=== PATIENT | female | born 1975 | race Caucasian/White ===

== ENCOUNTER 2017-06-02 11:43 | Emergency (ER) | payer BC, SELFPAY ==
[2017-06-02 11:56] VITALS: BP 137/81; PULSE 79; RESP 20; O2SAT 98; BMI 40.8
--- NOTE | 2017-06-02 12:06 | HMH.EDUTC ---
[facility] [place] Clinical Impression: Influenza A Disposition: Home, Self-Care Condition on Discharge: Good Instructions: DI for Influenza -- Adult Additional Instructions: * Too late to start tamiflu. Most effective when started within 48 hours of symptoms onset. * Lots of rest * Increase fluids, water, gatorade, powerade, pedialyte if /toddler/child * Monitor Temp. Tylenol every 4 hours as needed no more then 5 times a day or 4000mg in 24 hours and/or ibuprofen every 6 hours as needed no more then 3200mg in 24 hours (as long as your primary care doctor has told you that it is ok to take both) for fever/aches/pain. ER if fever no less than 101 despite tylenol and Ibuprofen * OTC cold/flu/sinus medication is ok but pick one. Do not take multiple different ones as they have similar ingredients and you can overdose on cold medication. If you want to take plain mucinex and plain sudafed, that is ok. * flonase 2 sprays each nostril daily but may take 2-3 days to notice improvement with it. * You (or your child) are contagious until no fever, aches, chills x 24 hours without medication for symptoms. Prescriptions: Fluticasone Propionate [Flonase 50mcg nasal spray 16gm] 2 spr NS DAILY #1 bottle Referrals: Bart Wagner MD [Primary Care Provider] - (IMMEDIATELY for new or worsening symptoms, improvement followed by suddenly feeling worse OR no noticeable improvement over the next 48-72 hours. 911 for difficulty breathing ) Time of Disposition: 12:22 Medical Decision Making Vital Signs: 06/02/17 11:56 06/02/17 12:10 Temperature 97.5 F L Temperature Source Temporal Artery Scan Oral Pulse Rate [Brachial] 79 Respiratory Rate 20 Blood Pressure [Left Arm] 137/81 Blood Pressure Mean [Left Arm] 99 Blood Pressure Source [Left Arm] Automatic Cuff Blood Pressure Position [Left Arm] Sitting 02 Sat by Pulse Oximetry 98 Oxygen Delivery Method Room Air - Lab Data Lab results reviewed: Yes: I reviewed the patient's lab results. Flu A positive Flu B negative - Nasim Inquiry Pt receiving controlled substance: No [facility] [place] - General Stated complaint: Head congestion cough DYER Time Seen by Provider: 06/02/17 11:57 Mode of Arrival: Ambulatory Source of Information: Patient Limitations: No Limitations Description of Symptoms (Recalled from Triage Doc. by RN): COUGH AND CONGESTION SINCE WEDNESDAY WITH FEVER OFF AND ON HEENT Symptoms (Recalled from RN notes): Yes Resp Symptoms (Recalled from RN notes): Yes Skin Symptoms (Recalled from RN notes): No MS Symptoms (Recalled from RN notes): No Functional Status (Recalled from RN notes): NA - History of Present Illness Provider Complaint: c/o not feeling well since Wednesday, 3 days ago. Started w/ mild sinus pressure but reports each day, she has felt worse. Mucinex hasn't helped. Ibuprofen takes the edge off . Fever 99-100, aches, chills, rhinorrhea, nasal congestion, sinus pressure, cough. Daughter w/ same symptoms last week. neg for flu on day 1 but thought to be flu like illness. - Related Data Previous Rx's Medication Instructions Recorded Fluticasone Propionate [Flonase 2 spr NS DAILY #1 bottle 06/02/17 50mcg nasal spray 16gm] Allergies Allergy/AdvReac Type Severity Reaction Status Date / Time No Known Allergies Allergy Verified 06/02/17 11:51 - Worker's Comp Is this a Worker's Comp case?: No [facility] History I have reviewed the patient's past medical history: Yes (denies PMHx) Laterality Cases: Bilateral: Tonsillectomy Other Surgeries: Yes: Tubal Ligation, Other (hysterectomy) - *Social History Smoking Status: Never smoker Alcohol Intake: never - Psychiatric History Expresses thoughts of harming self/others: None Suicide Plan Description: No Plan ROS Obtained: Yes Systems reviewed as appropriate & no additional complaints - Constitutional Constitutional: Reports body ache, Reports chills, Reports fatigue, Reports fever(s), Reports poor a
--- NOTE | 2017-06-02 12:09 | ED_ITS ---
[facility] – [place] Disposition Clinical Impression: Influenza A Disposition: Home, Self-Care Condition on Discharge: Good Instructions: DI for Influenza -- Adult Additional Instructions: * Too late to start tamiflu. Most effective when started within 48 hours of symptoms onset. * Lots of rest * Increase fluids, water, gatorade, powerade, pedialyte if /toddler/child * Monitor Temp. Tylenol every 4 hours as needed no more then 5 times a day or 4000mg in 24 hours and/or ibuprofen every 6 hours as needed no more then 3200mg in 24 hours (as long as your primary care doctor has told you that it is ok to take both) for fever/aches/pain. ER if fever no less than 101 despite tylenol and Ibuprofen * OTC cold/flu/sinus medication is ok but pick one. Do not take multiple different ones as they have similar ingredients and you can overdose on cold medication. If you want to take plain mucinex and plain sudafed, that is ok. * flonase 2 sprays each nostril daily but may take 2-3 days to notice improvement with it. * You (or your child) are contagious until no fever, aches, chills x 24 hours without medication for symptoms. Prescriptions: Fluticasone Propionate [Flonase 50mcg nasal spray 16gm] 2 spr NS DAILY #1 bottle Referrals: Bart Wagner MD [Primary Care Provider] - (IMMEDIATELY for new or worsening symptoms, improvement followed by suddenly feeling worse OR no noticeable improvement over the next 48-72 hours. 911 for difficulty breathing ) Time of Disposition: 12:22 Medical Decision Making Vital Signs: 06/02/17 11:56 06/02/17 12:10 Temperature 97.5 F L Temperature Source Temporal Artery Scan Oral Pulse Rate [Brachial] 79 Respiratory Rate 20 Blood Pressure [Left Arm] 137/81 Blood Pressure Mean [Left Arm] 99 Blood Pressure Source [Left Arm] Automatic Cuff Blood Pressure Position [Left Arm] Sitting 02 Sat by Pulse Oximetry 98 Oxygen Delivery Method Room Air - Lab Data Lab results reviewed: Yes: I reviewed the patient's lab results. Flu A positive Flu B negative - Nasim Inquiry Pt receiving controlled substance: No [facility] [place] HPI - General Stated complaint: Head congestion cough DYER Time Seen by Provider: 06/02/17 11:57 Mode of Arrival: Ambulatory Source of Information: Patient Limitations: No Limitations Description of Symptoms (Recalled from Triage Doc. by RN): COUGH AND CONGESTION SINCE WEDNESDAY WITH FEVER OFF AND ON HEENT Symptoms (Recalled from RN notes): Yes Resp Symptoms (Recalled from RN notes): Yes Skin Symptoms (Recalled from RN notes): No MS Symptoms (Recalled from RN notes): No Functional Status (Recalled from RN notes): NA - History of Present Illness Provider Complaint: c/o not feeling well since Wednesday, 3 days ago. Started w/ mild sinus pressure but reports each day, she has felt worse. Mucinex hasn't helped. Ibuprofen takes the edge off . Fever 99-100, aches, chills, rhinorrhea , nasal congestion, sinus pressure, cough. Daughter w/ same symptoms last week. neg for flu on day 1 but thought to be flu like illness. - Related Data Previous Rx's Medication Instructions Recorded Fluticasone Propionate [Flonase 2 spr NS DAILY #1 bottle 06/02/17 50mcg nasal spray 16gm] Allergies Allergy/AdvReac Type Severity Reaction Status Date / Time No Known Allergies Allergy Verified 06/02/17 11:51 - Worker's Comp Is this a Worker's Comp case?: No [facility] History
[2017-06-02 12:10] VITALS: TEMP 36.4
[2017-06-02 12:24] LABS: UTC Influenza A Antigen Positive (Negative); UTC Influenza B Antigen Negative (Negative)
== END 2017-06-02 12:29 | disposition home or self-care (01) ==
PROVIDERS: Emergency Provider Nurse Practitioner Family; Family Provider Internal Medicine Adolescent Medicine; PCP Internal Medicine Adolescent Medicine
DX: J09.X2 Influenza due to identified novel influenza A virus with other respiratory manifestations (principal)
CPT/HCPCS: 87804; 99202

== ENCOUNTER 2017-07-12 09:31 | Emergency (ER) | payer BC, SELFPAY ==
[2017-07-12 09:54] VITALS: BP 106/82; PULSE 62; RESP 18; TEMP 36.8; O2SAT 97; BMI 41.9
[2017-07-12 10:09] LABS: UTC Influenza A Antigen Negative (Negative); UTC Influenza B Antigen Negative (Negative); UTC Strep Screen (Rapid) Negative (Negative)
--- NOTE | 2017-07-12 11:04 | HMH.EDUTC ---
[facility] – [place] Disposition Clinical Impression: Upper respiratory virus Disposition: Home, Self-Care Condition on Discharge: Good Instructions: DI for Viral Upper Respiratory Infection -- Adult Additional Instructions: * No sign of bacterial infection. Likely viral and possibly the same virus your daughter had. Virus can take 7-14 days to run their course * Monitor Temp. Follow up if fevers develop * Encourage fluids, water, gatorade, powerade, pedialyte if infant/toddler/child * warm salt water gargles * warm fluids * sore throat lozenges * sleep elevated * humidifier/vaporizer * flonase 2 sprays each nostril daily or one spray each nostril twice a day; may take 2-3 days to notice improvement with it. * Start antihistamine like we discussed. If you have miguel angel, that is ok * Start sudafed for congestion. * * Your throat swab was sent for culture. Those results are typically sent to your primary care. Be sure to follow up in 2-3 days if no improvement so they can review those results and treat if necessary. If you don't have primary care, I recommend you get one but in the mean time, you will have to return to a walk in clinic. Referrals: Bart Wagner MD [Primary Care Provider] - (IMMEDIATELY for new or worsening symptoms, improvement followed by suddenly feeling worse OR no noticeable improvement over the next 3-4 days. 911 for difficulty breathing ) Time of Disposition: 11:06 Medical Decision Making Vital Signs: 07/12/17 09:54 Temperature 98.2 F Temperature Source Temporal Artery Scan Pulse Rate [Right Radial] 62 Respiratory Rate 18 Blood Pressure [Right Arm] 106/82 Blood Pressure Mean [Right Arm] 90 02 Sat by Pulse Oximetry 97 Oxygen Delivery Method Room Air - Lab Data Lab results reviewed: Yes: I reviewed the patient's lab results. Lab Results 07/12/17 09:32: Influenza Type A Ag Negative, Influenza Type B Ag Negative, Strep Scn Rapid Clinic Negative Orders (Tests/Meds): ORDERS Category Date Time Status Strep Screen Confirmation Stat Micro 07/12/17 09:32 Received - Nasim Inquiry Pt receiving controlled substance: No [facility] [place] HPI - General Stated complaint: Sinus Infection Time Seen by Provider: 07/12/17 10:55 Mode of Arrival: Family Vehicle Source of Information: Patient Limitations: No Limitations Description of Symptoms (Recalled from Triage Doc. by RN): pt c/o headache, sore throat, congestion, body aches. HEENT Symptoms (Recalled from RN notes): Yes (headache, sore throat, congestion, body aches) Resp Symptoms (Recalled from RN notes): No Skin Symptoms (Recalled from RN notes): No MS Symptoms (Recalled from RN notes): No Functional Status (Recalled from RN notes): na - History of Present Illness Provider Complaint: c/o nasal congestion, scratchy throat, rhinorrhea, ear pressure, PND, fatigue starting yesterday. Daughter w/ flu like illnesses last week after being exposed to flu that resolved over 5-6 days. Flonase started last night with mucinex but no improvement yet. Worried about flu or strep. - Related Data Previous Rx's Medication Instructions Recorded Fluticasone Propionate [Flonase 2 spr NS DAILY #1 bottle 06/02/17 50mcg nasal spray 16gm] Allergies Allergy/AdvReac Type Severity Reaction Status Date / Time No Known Allergies Allergy Verified 06/02/17 11:51 - Worker's Comp Is this a Worker's Comp case?: No [facility] History I have reviewed the patient's past medical history: Yes Medical History: Denies:: Cancer, Diabetes Mellitus Type 1, Diabetes Mellitus Type 2, Hypertension, MRSA Laterality Cases: Bilateral: Tonsillectomy Other Surgeries: Yes: Tubal Ligation, Other (hysterectomy) Amputation: No - Social History Smoking Status: Never smoker Alcohol Intake: never - Psychiatric History Expresses thoughts of harming self/others: None Suicide Plan Description: No Plan ROS Obtained: Yes Systems reviewed as appropriate & no additional complaints - Con
[2017-07-12 11:07] VITALS: BP 136/77; PULSE 87; RESP 20; TEMP 36.6; O2SAT 100
== END 2017-07-12 11:09 | disposition home or self-care (01) ==
PROVIDERS: Emergency Provider Nurse Practitioner Family; Family Provider Internal Medicine Adolescent Medicine; PCP Internal Medicine Adolescent Medicine
DX: J06.9 Acute upper respiratory infection, unspecified (principal)
CPT/HCPCS: 87804; 87880; 99202

== ENCOUNTER 2017-08-03 19:19 | Emergency (ER) | payer BC, SELFPAY ==
[2017-08-03 21:02] VITALS: BP 142/90; PULSE 77; RESP 20; TEMP 36.9; O2SAT 98; BMI 41.8
--- NOTE | 2017-08-03 21:13 | HMH.EDUTC ---
[facility] – [place] Disposition Clinical Impression: Abdominal pain Qualifiers: Abdominal location: lower abdomen, unspecified Qualified Code(s): R10.30 - Lower abdominal pain, unspecified Disposition: Still a Patient Condition on Discharge: Fair Time of Disposition: 21:24 (transfer to ER) Medical Decision Making - Nasim Inquiry Pt receiving controlled substance: No Vital Signs: 08/03/17 21:02 Temperature 98.4 F Temperature Source Oral Pulse Rate [Right Radial] 77 Respiratory Rate 20 Blood Pressure [Right Arm] 142/90 Blood Pressure Mean [Right Arm] 107 02 Sat by Pulse Oximetry 98 Oxygen Delivery Method Room Air - Lab Data Lab results reviewed: Yes: I reviewed the patient's lab results. Lab Results 08/03/17 20:54: Urine Color Yellow, Urine Appearance Clear, Urine pH 5.5, Ur Specific [place] 1.025, Urine Protein Negative, Urine Glucose (UA) Negative, Urine Ketones Negative, Urine Blood Negative, Urine Nitrate Negative, Urine Bilirubin Negative, Urine Urobilinogen 0.2, Ur Leukocyte Esterase Negative - Reevaluation(s) Time: 21:20 Reevaluation #1: Discussed possible differentials and my concern for patient's degree of discomfort. Pt agreeable to transfer to ER for further evaluation. Report called to CC. Bed 11 available. Isabell assisted pt to ER who preferred to walk as opposed to riding in W/C due to increasing pain w/ sitting. [facility] [place] HPI - General Stated complaint: abd pain Time Seen by Provider: 08/03/17 21:13 Mode of Arrival: Family Vehicle Source of Information: Patient, Parent(s) Limitations: No Limitations Description of Symptoms (Recalled from Triage Doc. by RN): PT C/O ABDOMINAL PAIN SINCE LAST NIGHT, PT STATES SHE IS HAVING BOWEL MOVEMENT PROBLEMS. HEENT Symptoms (Recalled from RN notes): No Resp Symptoms (Recalled from RN notes): No Skin Symptoms (Recalled from RN notes): No MS Symptoms (Recalled from RN notes): No Functional Status (Recalled from RN notes): NA - History of Present Illness Provider Complaint: c/o lower abdominal pain. First noticed this morning after a normal BM. [place] like maybe I didn't get it all out . 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 Tried soaking in a bath after that. Another normal but excruciatingly painful BM after the bath. Throughout the day, pain has progressed and now painful to walk, move. Hx of total hysterectomy. No fever, aches, chills. - Related Data Previous Rx's Medication Instructions Recorded Fluticasone Propionate [Flonase 2 spr NS DAILY #1 bottle 06/02/17 50mcg nasal spray 16gm] Allergies Allergy/AdvReac Type Severity Reaction Status Date / Time No Known Allergies Allergy Verified 08/03/17 20:26 - Worker's Comp Is this a Worker's Comp case?: No [facility] History I have reviewed the patient's past medical history: Yes Medical History: Denies:: Cancer, Diabetes Mellitus Type 1, Diabetes Mellitus Type 2, Gastrointestinal Bleed, Hypertension, MRSA Other Medical History: Denies: Other (GI disorders) Laterality Cases: Bilateral: Tonsillectomy Other Surgeries: Yes: Hysterectomy-Total, Tubal Ligation, Other (hysterectomy) Amputation: No Fractures: No - Social History Smoking Status: Never smoker Alcohol Intake: never - Psychiatric History Expresses thoughts of harming self/others: None Suicide Plan Description: No Plan ROS Obtained: Yes Systems reviewed as appropriate & no additional complaints - Constitutional Constitutional: Reports as per HPI, Reports fatigue, Reports poor appetite - ENT Ears, Nose, Mouth, and Throat: Denies sore throat - Cardiovascular Cardiovascular: Denies chest pain, Denies irregular heart rhythm - Respiratory Respiratory: No dyspnea - Gastrointestinal Gastrointestingal: Reports: as per HPI, other (painful passing gas). Denies: nausea, vomiting - Genitourinary Female Genitourinary: Denies difficulty voiding, Denies dysuria, Denies urinary frequency, Denies vaginal
[2017-08-03 21:23] LABS: Apearance,Urine Clear (Clear); Bilirubin,Urine Negative (Negative); Blood, Urine Negative (Negative); Color,Urine Yellow (Yellow); Glucose,Urine (UA) Negative (Negative); Ketones,Urine Negative (Negative); PH,Urine 5.5 (5.0-8.5); Protein,Urine Negative (Negative); Specific Gravity, Urine 1.025 (1.005-1.030); UTC Leukocyte Esterase,Urine Negative (Negative); UTC Nitrate,Urine Negative (Negative); Urobilinogen,Urine 0.2 EU/dl (0.2)
--- NOTE | 2017-08-03 21:24 | ED_ITS ---
[facility] [place] Impression: Abdominal pain Qualifiers: Abdominal location: lower abdomen, unspecified Qualified Code(s): R10.30 - Lower abdominal pain, unspecified Disposition: Still a Patient Condition on Discharge: Fair Time of Disposition: 21:24 (transfer to ER) Medical Decision Making - Nasim Inquiry Pt receiving controlled substance: No Vital Signs: 08/03/17 21:02 Temperature 98.4 F Temperature Source Oral Pulse Rate [Right Radial] 77 Respiratory Rate 20 Blood Pressure [Right Arm] 142/90 Blood Pressure Mean [Right Arm] 107 02 Sat by Pulse Oximetry 98 Oxygen Delivery Method Room Air - Lab Data Lab results reviewed: Yes: I reviewed the patient's lab results. Lab Results 08/03/17 20:54: Urine Color Yellow, Urine Appearance Clear, Urine pH 5.5, Ur Specific [place] 1.025, Urine Protein Negative, Urine Glucose (UA) Negative, Urine Ketones Negative, Urine Blood Negative, Urine Nitrate Negative, Urine Bilirubin Negative, Urine Urobilinogen 0.2, Ur Leukocyte Esterase Negative - Reevaluation(s) Time: 21:20 Reevaluation #1: Discussed possible differentials and my concern for patient's degree of discomfort. Pt agreeable to transfer to ER for further evaluation. Report called to CC. Bed 11 available. Isabell assisted pt to ER who preferred to walk as opposed to riding in W/C due to increasing pain w/ sitting. [facility] [place] - General Stated complaint: abd pain Time Seen by Provider: 08/03/17 21:13 Mode of Arrival: Family Vehicle Source of Information: Patient, Parent(s) Limitations: No Limitations Description of Symptoms (Recalled from Triage Doc. by RN): PT C/O ABDOMINAL PAIN SINCE LAST NIGHT, PT STATES SHE IS HAVING BOWEL MOVEMENT PROBLEMS. HEENT Symptoms (Recalled from RN notes): No Resp Symptoms (Recalled from RN notes): No Skin Symptoms (Recalled from RN notes): No MS Symptoms (Recalled from RN notes): No Functional Status (Recalled from RN notes): NA - History of Present Illness Provider Complaint: c/o lower abdominal pain. First noticed this morning after a normal BM. [place] like maybe I didn't get it all out . 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 Tried soaking in a bath after that. Another normal but excruciatingly painful BM after the bath. Throughout the day, pain has progressed and now painful to walk, move. Hx of total hysterectomy. No fever, aches, chills. - Related Data Previous Rx's Medication Instructions Recorded Fluticasone Propionate [Flonase 2 spr NS DAILY #1 bottle 06/02/17 50mcg nasal spray 16gm] Allergies Allergy/AdvReac Type Severity Reaction Status Date / Time No Known Allergies Allergy Verified 08/03/17 20:26 - Worker's Comp Is this a Worker's Comp case?: No [facility] History I have reviewed the patient's past medical history: Yes Medical History: Denies:: Cancer, Diabetes Mellitus Type 1, Diabetes Mellitus Type 2, Gastrointestinal Bleed, Hypertension, MRSA Other Medical History: Denies: Other (GI disorders) Laterality Cases: Bilateral: Tonsillectomy Other Surgeries: Yes: Hysterectomy-Total, Tubal Ligation, Other (hysterectomy) Amputation: No Fractures: No - Social History Smoking Status: Never smoker Alcohol Intake: never - Psychiatric History Expresses thoughts of harming self/others: None Suicide Plan Description: No Plan ROS Obtained: Yes Systems
[2017-08-03 21:31] VITALS: BP 142/86; PULSE 74; RESP 12; TEMP 36.8; O2SAT 97; BMI 41.8
[2017-08-03 22:16] LABS: Basophils # 0.1 K/mm3 (0-0.2); Basophils % 0.5 % (0.1-2.0); Eosinophils # 0.3 K/mm3 (0.0-0.4); Eosinophils % 3.2 % (0.1-12.0); Hemoglobin 14.8 g/dL (12.2-16.2); Lymphocytes # 3.6 K/mm3 (0.7-4.5); Lymphocytes % 39.1 K/mm3 (10-50); Mean Corpuscular HGB Conc 33.7 g/dL (31.8-35.4); Mean Corpuscular Hemoglobin 28.9 pg (27.0-31.2); Mean Platelet Volume 7.1 fl (7.4-10.4); Monocytes # 0.4 K/mm3 (0.1-1.0); Monocytes % 4.1 % (1.7-9.3); Neutrophils # 4.9 K/mm3 (1.8-7.8); Neutrophils % 53.2 % (37.0-80.0); Platelet Count 200 K/mm3 (142-424); Red Blood Count 5.12 M/mm3 (4.20-5.40); Red Cell Distribution Width 13.3 % (11.5-17.5); White Blood Count 9.3 K/mm3 (4.8-10.8)
--- NOTE | 2017-08-03 22:22 | PC.NURSE ---
pt finished oral contrast, radiology aware
[2017-08-03 22:28] LABS: Alanine Aminotransferase 54 U/L (12-78); Albumin Level 4.1 gm/dL (3.4-5.0); Albumin/Globulin Ratio 1.3 (1.1-1.8); Alkaline Phosphatase 83 U/L (46-116); Amylase 34 U/L (25-125); Anion Gap 13.5 mEq/L (5-15); Aspartate Amino Transferase 27 U/L (15-37); Bilirubin,Total 0.6 mg/dL (0.2-1.0); Blood Urea Nitrogen 14 mg/dL (7-18); Calcium 9.2 mg/dL (8.5-10.1); Carbon Dioxide 26 mmol/L (21.0-32.0); Chloride 105 mmol/L (98-107); Creatinine Clearance Estimated 94 mL/min (0-300); Creatinine,Serum 0.73 mg/dL (0.55-1.02); Estimated Glomerular Filt Rate 87 ml/min (>60); GFR (African American) 106 ML/MIN (>60); Globulin 3.1 gm/dl (1.3-3.2); Glucose 108 mg/dL (74-106); Lipase 128 u/L (73-393); Potassium 3.5 mmoL/L (3.5-5.1); Sodium 141 mmol/L (136-145); Total Protein,Serum 7.2 gm/dL (6.4-8.2)
[2017-08-03 22:55] LABS: Erythrocyte Sedimentation Rate 14 mm/hr (0-20)
[2017-08-03 23:14] LABS: Occult Blood,Stool Negative (Negative)
--- NOTE | 2017-08-04 | CT_ITS ---
CT abdomen w con CLINICAL INDICATION: Localized lower abdominal pain, rectal pain ITS.REASON: pain ORDERING PHYSICIAN: Sabas Granados MD PATIENT AGE: 42 years COMPARISON: 08/18/2013 TECHNIQUE: Axial images obtained with sagittal and coronal reformats. PROCEDURE: Oral Contrast: Redicat IV Contrast: 75 mL of [id number]. FINDINGS: No acute finding in the lung bases. Minimal nodularity left lung base posteriorly laterally nonspecific in the subpleural region measuring 5 mm. Diffuse fatty liver. No focal liver lesion. The gallbladder, spleen, adrenal glands, and pancreas are unremarkable. No obstructing renal or ureteral calculi. No obvious renal mass. Tiny umbilical hernia contains fat noted. No intestinal obstruction or free air. Unremarkable appendix. Prior hysterectomy. There is some mild stranding of the fat in the pelvic region superior to the vaginal cuff. This may be postsurgical in nature having a somewhat similar appearance on 08/18/2013. Mild inflammatory changes also a consideration. No abscess or other significant anomalies apparent. There is a small focus of gas in the urinary bladder nonspecific and could be related to recent catheterization. Please correlate clinically IMPRESSION: 1. Minimal stranding of the fat in the pelvic region which may be secondary to postsurgical scarring or mild inflammatory change. 2. Small focus of gas in urinary bladder which could be due to recent catheterization or urinary tract infection. 3. Fatty liver
[2017-08-04 00:20] VITALS: BP 136/59; PULSE 89; RESP 16; O2SAT 97
--- NOTE | 2017-08-04 01:00 | HMH.EDNVD ---
ED Disposition Clinical Impression: Abdominal pain Qualifiers: Abdominal location: lower abdomen, unspecified Qualified Code(s): R10.30 - Lower abdominal pain, unspecified Disposition: Home, Self-Care Condition on Discharge: Good Instructions: DI for Acute Abdomen Additional Instructions: call dr for follow up Referrals: Bart Wagner MD [Primary Care Provider] - - Critical Care Critical Care Time: No Attestation: On 08/03/17, the high probability of a clinically significant, sudden or life threatening deterioration of the following system(s) required my full and direct attention, intervention and personal management. The time I documented below is in addition to time spent performing reported procedures but includes the following listed in this critical care notation. Medical Decision Making - Medical Records Medical records reviewed: Yes: I reviewed the patient's medical records. - Nasim Inquiry Pt receiving controlled substance: No Vital Signs: 08/03/17 21:02 08/03/17 21:31 08/04/17 00:20 Temperature 98.4 F 98.3 F Temperature Source Oral Oral Pulse Rate [Right Radial] 77 74 89 Respiratory Rate 20 12 16 Blood Pressure [Right Arm] 142/90 142/86 136/59 Blood Pressure Mean [Right Arm] 107 104 84 Blood Pressure Source [Right Arm] Automatic Cuff Automatic Cuff Blood Pressure Position [Right Arm] Sitting Sitting 02 Sat by Pulse Oximetry 98 97 97 Oxygen Delivery Method Room Air Room Air Room Air - Lab Data Lab results reviewed: Yes: I reviewed the patient's lab results. Lab Results 08/03/17 20:54: Urine Color Yellow, Urine Appearance Clear, Urine pH 5.5, Ur Specific [place] 1.025, Urine Protein Negative, Urine Glucose (UA) Negative, Urine Ketones Negative, Urine Blood Negative, Urine Nitrate Negative, Urine Bilirubin Negative, Urine Urobilinogen 0.2, Ur Leukocyte Esterase Negative 08/03/17 21:55: WBC 9.3, RBC 5.12, Hgb 14.8, Hct 44.0, MCV 86.0, MCH 28.9, MCHC 33.7, RDW 13.3, Plt Count 200, MPV 7.1 L, Neut % (Auto) 53.2, Lymph % (Auto) 39.1, [place] % (Auto) 4.1, Eos % (Auto) 3.2, Baso % (Auto) 0.5, Neut # (Auto) 4.9, Lymph # (Auto) 3.6, [place] # (Auto) 0.4, Eos # (Auto) 0.3, Baso # (Auto) 0.1 08/03/17 21:55: Sodium 141, Potassium 3.5, Chloride 105, Carbon Dioxide 26, Anion Gap 13.5, BUN 14, Creatinine 0.73, Estimated Creat Clear 94, Estimated GFR 87, Est GFR ( Amer) 106, Glucose 108 H, Calcium 9.2, Total Bilirubin 0.6, AST 27, ALT 54, Alkaline Phosphatase 83, Total Protein 7.2, Albumin 4.1, Globulin 3.1, Albumin/Globulin Ratio 1.3, Amylase 34, Lipase 128 08/03/17 21:55: ESR 14 08/03/17 22:27: Stool Occult Blood Negative Result diagrams: 08/03/17 21:55 08/03/17 21:55 Orders (Tests/Meds): ED MEDICATIONS Discontinued Medications Generic Name Dose Route Start Last Admin Trade Name Freq PRN Reason Stop Dose Admin Diatrizoate Meglum/Diatrizoate Sod 30 ml 08/03/17 22:08 08/03/17 22:12 Gastrografin 66%-10% 30ml PO 08/03/17 22:09 30 ml ONCE ONE Administration Iopamidol 75 ml 08/04/17 01:45 08/04/17 01:46 [id number]; 100ml Vial IV 08/04/17 01:46 75 ml ONCE ONE Administration Sodium Chloride 10 ml 08/04/17 01:45 08/04/17 01:46 Rad-Saline Flush 10ml Syringe IV 08/04/17 01:46 10 ml ONCE ONE Administration ORDERS Category Date Time Status CT abdomen pelvis wo con Stat Cat Scan 08/03/17 21:[address] abdomen w con Stat Cat Scan 08/04/17 00:00 Taken - CT Data CT Scan: Abdomen, Pelvis Time Received: 01:[address] Reviewed: Yes: I have viewed the radiologist's interpretation Preliminary Findings: Normal/NAD Nausea/Vomiting/Diarrhea HPI - General Chief complaint: Abdominal Pain Stated complaint: abd pain Time Seen by Provider: 08/03/17 21:13 Mode of Arrival: Family Vehicle Source of Information: Patient, Parent(s) Limitations: No Limitations Description of Symptoms (Recalled from ER Triage Doc. by RN): PT C/O ABDOMINAL PAIN SINCE LA
[2017-08-04 02:23] VITALS: BP 141/89; PULSE 85; RESP 16; TEMP 36.8; O2SAT 99
== END 2017-08-04 02:24 | disposition home or self-care (01) ==
LOC: UTC 21:24 → ER 21:28 → UTC 21:28 → ER 21:29
PROVIDERS: Nurse Practitioner Family; Emergency Provider Emergency Medicine; Family Provider Internal Medicine Adolescent Medicine; PCP Internal Medicine Adolescent Medicine
DX: R10.30 Lower abdominal pain, unspecified (principal)
CPT/HCPCS: 74160; 80053; 81003; 82150; 82272; 83690; 85025; 85651; 87086; 96365; 96374; 99211; 99284; G0328; Q9967

== ENCOUNTER → 2017-08-23 08:37 | Outpatient (POV) | payer BC, SELFPAY | PROVIDERS: Visit Provider Nurse Practitioner Acute Care | DX: Z00.00 Encounter for general adult medical examination without abnormal findings (principal) ==

== ENCOUNTER → 2020-08-06 08:05 | Outpatient (CLI) | payer BC, SELFPAY ==
[2020-08-06 08:47] LABS: Basophils % 0.7 % (0.1-2.0); Eosinophils # 0.1 K/mm3 (0.0-0.4); Eosinophils % 2.3 % (0.1-12.0); Hematocrit 42.6 % (37.0-47.0); Hemoglobin 14.1 g/dL (12.2-16.2); Lymphocytes # 1.9 K/mm3 (0.7-4.5); Lymphocytes % 32.9 % (10-50); Mean Corpuscular HGB Conc 33.1 g/dL (31.8-35.4); Mean Corpuscular Hemoglobin 29.1 pg (27.0-31.2); Mean Platelet Volume 7.3 fl (7.4-10.4); Monocytes # 0.2 K/mm3 (0.1-1.0); Monocytes % 4.1 % (1.7-9.3); Neutrophils # 3.4 K/mm3 (1.8-7.8); Neutrophils % 59.9 % (37.0-80.0); Platelet Count 160 K/mm3 (142-424); Red Blood Count 4.84 M/mm3 (4.20-5.40); Red Cell Distribution Width 13.4 % (11.5-17.5); White Blood Count 5.7 K/mm3 (4.8-10.8)
[2020-08-06 09:17] LABS: Alanine Aminotransferase 12 U/L (12-78); Albumin Level 4.4 g/dl (3.5-5.0); Albumin/Globulin Ratio 2.2 (1.1-1.8); Alkaline Phosphatase 51 U/L (38-126); Anion Gap 11.4 mEq/L (5-15); Aspartate Amino Transferase 20 U/L (14-36); Bilirubin,Total 0.6 mg/dl (0.2-1.3); Blood Urea Nitrogen 17 mg/dl (7-17); Carbon Dioxide 28 mmol/L (22.0-30.0); Chloride 109 mmol/L (98-107); Chol/HDL Ratio 2.3 (1-3.5); Cholesterol 184 mg/dl (140-200); Estimated Glomerular Filt Rate 90 ml/min (>60); GFR (African American) 109 ML/MIN (>60); Glucose 88 mg/dl (74-100); HDL Cholesterol 79 mg/dl (40-60); Potassium 4.4 mmoL/L (3.5-5.1); Sodium 144 mmol/L (136-145); Total Protein,Serum 6.4 g/dl (6.3-8.2); Triglycerides 68 mg/dl (30-150); VLDL Cholesterol 14 mg/dL (0-40)
[2020-08-06 09:28] LABS: Direct LDL Cholesterol 84.72 mg/dL (100-129)
[2020-08-06 09:35] LABS: 25-OH Vitamin D, Total 83.8 ng/mL (30-100)
[2020-08-06 09:48] LABS: Thyroid Stimulating Hormone 1.86 uIU/mL (0.465-4.68)
[2020-08-06 10:06] LABS: Vitamin B12 628 pg/mL (239-931)
== END ==
PROVIDERS: Visit Provider Nurse Practitioner Family
DX: Z00.00 Encounter for general adult medical examination without abnormal findings (principal); R22.1 Localized swelling, mass and lump, neck; Z98.84 Bariatric surgery status
CPT/HCPCS: 36415; 80053; 80061; 82306; 82607; 84443; 85025

== ENCOUNTER → 2020-08-07 09:23 | Outpatient (CLI) | payer BC, SELFPAY ==
--- NOTE | 2020-08-07 09:31 | US_ITS ---
PROCEDURE: US SOFT TISSUE HEAD AND NECK CLINICAL INDICATION: NECK MASS COMPARISON: No exams were available for comparison FINDINGS: The submandibular and parotid glands have an unremarkable appearance. No neck masses demonstrated. IMPRESSION: Unremarkable ultrasound the neck. If there is indeed a palpable nodule then, CT without and with contrast may provide further evaluation Dictated by: Mike Alas MD 08/07/2020 16:57 Mike Alas MD in [place] 08/07/2020 16:57
== END ==
PROVIDERS: PCP Internal Medicine Adolescent Medicine; Visit Provider Nurse Practitioner Family
DX: R22.1 Localized swelling, mass and lump, neck (principal)
CPT/HCPCS: 76536

== ENCOUNTER → 2021-02-07 15:44 | Outpatient (CLI) | payer BC, SELFPAY ==
--- NOTE | 2021-02-07 15:48 | XR_ITS ---
PROCEDURE: XR RIBS LT MIN 3V W CXR1V CLINICAL INDICATION: ACUTE CHEST WALL PAIN COMPARISON: No exams were available for comparison FINDINGS: Frontal view of the chest shows no acute finding. Multiple views of the left ribs show no fracture or dislocation. No lytic or blastic change. No evidence of pneumothorax. There is minimal lumbar curvature convex right. IMPRESSION: No acute findings. Dictated by: Mike Alas MD 02/07/2021 16:06 Mike Alas MD in [place] 02/07/2021 16:06
== END ==
LOC: RAD 15:45
PROVIDERS: PCP Nurse Practitioner Family; Visit Provider Nurse Practitioner Family
DX: R07.89 Other chest pain (principal)
CPT/HCPCS: 71101

== ENCOUNTER 2021-03-23 14:14 | Emergency (ER) | payer BC, SELFPAY ==
[2021-03-23 14:53] VITALS: BP 126/73; PULSE 66; RESP 20; TEMP 37.1; O2SAT 99; BMI 29.1
--- NOTE | 2021-03-23 15:09 | CT_ITS ---
PROCEDURE INFORMATION: Exam: CT Abdomen And Pelvis With Contrast Exam date and time: 03/23/2021 3:09 PM Age: 46 years old Clinical indication: Abdominal pain; Other: Left lower quadrant; Patient HX: Gastric sleeve in 2018- hysterectomy; Additional info: Abd pain TECHNIQUE: Imaging protocol: Computed tomography of the abdomen and pelvis with contrast. Radiation optimization: All CT scans at this facility use at least one of these dose optimization techniques: automated exposure control; mA and/or kV adjustment per patient size (includes targeted exams where dose is matched to clinical indication); or iterative reconstruction. Contrast material: ISOVUE; Contrast volume: 70 ml; Contrast route: IV; COMPARISON: ABDW CT abdomen w con 08/04/2017 12:59 AM FINDINGS: Liver: Normal. No mass. Gallbladder and bile ducts: Normal. No calcified stones. No ductal dilation. Pancreas: Normal. No ductal dilation. Spleen: Normal. No splenomegaly. Adrenal glands: Normal. No mass. Kidneys and ureters: Normal. No hydronephrosis. Stomach and bowel: Gastric sleeve. There is a focus of extraluminal inflammation lateral to the upper descending colon with central fat density. This suggests epiploic appendigitis. Appendix: Normal appendix. Intraperitoneal space: Unremarkable. No free air. No significant fluid collection. Vasculature: Unremarkable. No abdominal aortic aneurysm. Lymph nodes: Unremarkable. No enlarged lymph nodes. Urinary bladder: Unremarkable as visualized. Reproductive: Unremarkable as visualized. Bones/joints: Unremarkable. No acute fracture. Soft tissues: Unremarkable. Other findings: No other acute disease seen. As above. IMPRESSION: 1. There is a focus of extraluminal inflammation lateral to the upper descending colon with central fat density. This suggests epiploic appendigitis. 2. No other acute disease seen. As above.
--- NOTE | 2021-03-23 15:15 | HMH.EDGENADL ---
ED Disposition Clinical Impression: Epiploic appendagitis Disposition: Home, Self-Care Condition on Discharge: Good Additional Instructions: Ibuprofen as prescribed for pain. Additional instructions for ABDOMINAL PAIN: See your physician as soon as possible for further evaluation. Return immediately if worsening abdominal pain, vomiting, shortness of breath, fever, vomiting of blood or abdominal distention. Prescriptions: Ibuprofen [Ibuprofen 800mg Tablet] 800 mg PO Q8HP PRN #20 tab PRN Reason: Moderate Pain Transmission Status: Pending to [facility] Referrals: Bart Wagner MD [Primary Care Provider] - - Critical Care Critical Care Time: No Attestation: On 03/23/21, the high probability of a clinically significant, sudden or life threatening deterioration of the following system(s) required my full and direct attention, intervention and personal management. The time I documented below is in addition to time spent performing reported procedures but includes the following listed in this critical care notation. Medical Decision Making - Nasim Inquiry Pt receiving controlled substance: No Vital Signs: 03/23/21 14:53 03/23/21 16:23 Temperature 98.7 F Temperature Source Oral Pulse Rate [Right Radial] 66 53 L Respiratory Rate 20 18 Blood Pressure [Right Arm] 126/73 106/74 L Blood Pressure Mean [Right Arm] 90 84 Blood Pressure Source [Right Arm] Automatic Cuff Blood Pressure Position [Right Arm] Sitting 02 Sat by Pulse Oximetry 99 99 Oxygen Delivery Method Room Air - Lab Data Lab Results 03/23/21 15:03: Urine Color Yellow, Urine Appearance Clear, Urine pH 5.5, Ur Specific [place] >= 1.030, Urine Protein Negative, Urine Glucose (UA) Negative, Urine Ketones Negative, Urine Blood Negative, Urine Nitrate Negative, Urine Bilirubin Negative, Urine Urobilinogen 0.2, Ur Leukocyte Esterase Negative, Urine WBC Occasional, Ur Squamous Epith Cells Occasional, Urine Bacteria Trace, Urine Mucus 2+ 03/23/21 15:03: WBC 7.2, RBC 4.95, Hgb 14.6, Hct 44.9, MCV 90.7, MCH 29.4, MCHC 32.5, RDW 13.3, Plt Count 212, MPV 8.1, Neut % (Auto) 59.9, Lymph % (Auto) 34.2, [place] % (Auto) 3.4, Eos % (Auto) 1.8, Baso % (Auto) 0.7, Neut # (Auto) 4.3, Lymph # (Auto) 2.4, [place] # (Auto) 0.2, Eos # (Auto) 0.1, Baso # (Auto) 0.1 03/23/21 15:03: Sodium 141, Potassium 3.9, Chloride 106, Carbon Dioxide 27, Anion Gap 11.9, BUN 13, Creatinine 0.60, Estimated Creat Clear 156, Estimated GFR 108, Est GFR ( Amer) 130, Glucose 91, Calcium 9.7, Total Bilirubin 0.5, AST 24, ALT 14, Alkaline Phosphatase 65, Total Protein 7.1, Albumin 4.6, Globulin 2.5, Albumin/Globulin Ratio 1.8, Lipase 120 Result diagrams: 03/23/21 15:03 03/23/21 15:03 Orders (Tests/Meds): ED MEDICATIONS Discontinued Medications Generic Name Dose Route Start Last Admin Trade Name Freq PRN Reason Stop Dose Admin Iopamidol 70 ml 03/23/21 15:36 03/23/21 15:37 Iopamidol-370 (76%);100ml Bottle IV 03/23/21 15:37 70 ml ONCE ONE Administration Sodium Chloride 10 ml 03/23/21 15:36 03/23/21 15:37 Sodium Chloride 0.9% 10ml Syr (Rad Only) IV 03/23/21 15:37 10 ml ONCE ONE Administration - CT Data CT Scan: Abdomen, Pelvis Time Received: 16:[address] Reviewed: Yes: I have viewed the radiologist's interpretation Findings Narrative: PROCEDURE INFORMATION: Exam: CT Abdomen And Pelvis With Contrast Exam date and time: 03/23/2021 3:09 PM Age: 46 years old Clinical indication: Abdominal pain; Other: Left lower quadrant; Patient HX: Gastric sleeve in 2018- hysterectomy; Additional info: Abd pain TECHNIQUE: Imaging protocol: Computed tomography of the abdomen and pelvis with contrast. Radiation optimization: All CT scans at this facility use at least one of these dose optimization techniques: automated exposure control; mA and/or kV adjustment per patient size (includes targeted exams where dose is matched to cl
[2021-03-23 15:24] LABS: Microscopic, Urine URINE MICROSCOPIC (MICROSCOPIC)
[2021-03-23 15:25] LABS: Basophils # 0.1 K/mm3 (0-0.2); Basophils % 0.7 % (0.1-2.0); Eosinophils # 0.1 K/mm3 (0.0-0.4); Eosinophils % 1.8 % (0.1-12.0); Hematocrit 44.9 % (37.0-47.0); Hemoglobin 14.6 g/dL (12.2-16.2); Lymphocytes # 2.4 K/mm3 (0.7-4.5); Lymphocytes % 34.2 % (10-50); Mean Corpuscular HGB Conc 32.5 g/dL (31.8-35.4); Mean Corpuscular Hemoglobin 29.4 pg (27.0-31.2); Mean Corpuscular Volume 90.7 fl (81-99); Mean Platelet Volume 8.1 fl (7.4-10.4); Monocytes # 0.2 K/mm3 (0.1-1.0); Monocytes % 3.4 % (1.7-9.3); Neutrophils # 4.3 K/mm3 (1.8-7.8); Neutrophils % 59.9 % (37.0-80.0); Platelet Count 212 K/mm3 (142-424); Red Blood Count 4.95 M/mm3 (4.20-5.40); Red Cell Distribution Width 13.3 % (11.5-17.5); White Blood Count 7.2 K/mm3 (4.8-10.8)
[2021-03-23 15:27] LABS: Appearance,Urine CLEAR (Clear); Bilirubin,Urine Negative (Negative); Blood, Urine Negative (Negative); Color,Urine YELLOW (Yellow); Glucose,Urine (UA) Negative (Negative); Ketones,Urine Negative (Negative); Leukocyte Esterase,Urine Negative (Negative); Nitrate,Urine Negative (Negative); PH,Urine 5.5 (5.0-8.5); Protein,Urine Negative (Negative); Specific Gravity, Urine >= 1.030 (1.005-1.030); Urobilinogen,Urine 0.2 EU/dl (0.2)
[2021-03-23 15:31] LABS: Chloride 106 mmol/L (98-107); Potassium 3.9 mmoL/L (3.5-5.1); Sodium 141 mmol/L (136-145)
[2021-03-23 15:33] LABS: Alanine Aminotransferase 14 U/L (12-78); Aspartate Amino Transferase 24 U/L (14-36); Blood Urea Nitrogen 13 mg/dl (7-17); Creatinine Clearance Estimated 156 mL/min (50-200); Estimated Glomerular Filt Rate 108 ml/min (>60); GFR (African American) 130 ML/MIN (>60)
[2021-03-23 15:34] LABS: Albumin Level 4.6 g/dl (3.5-5.0); Albumin/Globulin Ratio 1.8 (1.1-1.8); Alkaline Phosphatase 65 U/L (38-126); Anion Gap 11.9 mEq/L (5-15); Bilirubin,Total 0.5 mg/dl (0.2-1.3); Calcium 9.7 mg/dl (8.4-10.2); Carbon Dioxide 27 mmol/L (22.0-30.0); Globulin 2.5 g/dL (1.3-3.2); Glucose 91 mg/dl (74-100); Lipase 120 U/L (23-300); Total Protein,Serum 7.1 g/dl (6.3-8.2)
[2021-03-23 15:36] LABS: Bacteria,Urine Trace /lpf; Mucus,Urine 2+ /lpf; Squamous Epithelial Cell,Urine Occasional #/hpf (0-5); WBC,Urine Occasional #/hpf (0-3)
[2021-03-23 16:23] VITALS: BP 106/74; PULSE 53; RESP 18; O2SAT 99
[2021-03-23 18:30] VITALS: BP 165/74; PULSE 78; RESP 16; TEMP 36.6; O2SAT 98
== END 2021-03-23 18:32 | disposition home or self-care (01) ==
LOC: UTC 14:16 → ER 14:28
PROVIDERS: Emergency Provider Emergency Medicine; PCP Internal Medicine Adolescent Medicine
DX: K63.89 Other specified diseases of intestine (principal); R10.32 Left lower quadrant pain
CPT/HCPCS: 74177; 80053; 81001; 83690; 85025; 96365; 96375; 99283; Q9967

== ENCOUNTER → 2021-03-26 16:56 | Outpatient (CLI) | payer BC, SELFPAY | PROVIDERS: PCP Radiology Diagnostic Radiology; Visit Provider Nurse Practitioner | DX: Z20.822 Contact with and (suspected) exposure to COVID-19 (principal) | CPT/HCPCS: C9803; U0003; U0005 ==

== ENCOUNTER 2021-04-13 09:14 | Emergency (ER) | payer BC, SELFPAY ==
[2021-04-13 09:15] VITALS: BP 134/74; PULSE 79; RESP 18; TEMP 37.2; O2SAT 99; BMI 29.9
--- NOTE | 2021-04-13 09:57 | HMH.EDUTC ---
[facility] Disposition Clinical Impression: Upper respiratory virus Disposition: Home, Self-Care Condition on Discharge: Good Instructions: Acute Bronchitis, DI for Sinusitis, Sore Throat Additional Instructions: *Monitor Temp, Over the counter Motrin or Tylenol as directed/as needed Tylenol every 4 hours and Motrin every 6 hours (as long as your family doctor has told you that you can take it) for fever or pain. and straight to ER if unable to lower temp less than 101.0 after medication given *Warm salt water gargles may help to soothe the throat *Throat Lozenges *Warm fluids like tea with honey may help to soothe the throat *Sleep elevated *Humidifier/Vaporizer *Flonase 2 sprays in each nostril daily but be aware that it may take 2-3 days before you notice improvement Follow up IMMEDIATELY for new or worsening symptoms or no Noticeable improvement over the next 48-72 hours. 911 for difficulty breathing or swallowing You were tested for today for COVID19 your test result should be back in the next 24-48 hours, you may Check your results on the [facility] My Health Portal if you have issues logging in you may call for assistance or pick your results up in person at the Health Information office from 8am 430pm You was given a handout with instructions for Self Quarantine and Self isolation for while you wait on test results and what to do if they are positive If you are positive the Health Dept will be contacting you also Prescriptions: Benzonatate [Benzonatate 100mg cap] 100 mg PO TID PRN #30 cap PRN Reason: Cough Transmission Status: Pending to [facility] Fluticasone Propionate [Flonase 50mcg nasal spray 16gm] 1 spr NS DAILY #1 each Transmission Status: Pending to [facility] Azithromycin [Z-Yossi 250mg Tab] 250 mg PO DIRECTED #6 tab Transmission Status: Pending to [facility] Referrals: Bart Wagner MD [Primary Care Provider] - As needed Forms: Work/School Release Time of Disposition: 10:03 Medical Decision Making - Nasim Inquiry Pt receiving controlled substance: No Nasim was queried for this patient: No Vital Signs: 04/13/21 09:15 Temperature 99 F Temperature Source Oral Pulse Rate [Right Brachial] 79 Respiratory Rate 18 Blood Pressure [Right Arm] 134/74 Blood Pressure Mean [Right Arm] 94 Blood Pressure Source [Right Arm] Automatic Cuff Blood Pressure Position [Right Arm] Sitting 02 Sat by Pulse Oximetry 99 Oxygen Delivery Method Room Air Orders (Tests/Meds): ORDERS Category Date Time Status Covid-19 Nasal PCR ([facility]) Routine Lab 04/13/21 09:28 Received [facility] HPI - General Stated complaint: Sore throat, cough, congestion, h/a Time Seen by Provider: 04/13/21 09:57 Mode of Arrival: Ambulatory Source of Information: Patient Limitations: No Limitations Description of Symptoms (Recalled from Triage Doc. by RN): PATIENT C/O HEADACHE, CHILLS, FATIGUE AND PRODUCTIVE COUGH SINCE WEDNESDAY HEENT Symptoms (Recalled from RN notes): Yes Resp Symptoms (Recalled from RN notes): Yes Skin Symptoms (Recalled from RN notes): No MS Symptoms (Recalled from RN notes): No Functional Status (Recalled from RN notes): WNL - History of Present Illness Provider Complaint: Patient statse that she hasnt felt well for several days and Wednesday it started getting worse States that she has been having sinus congestion and pressure, sore throat and at times she is coughing up some mucous States that she feels like she is having drainage in the back of her throat causing her to cough States that she came in today to get checked to make sure she didnt have COVID - Related Data Previous Rx's Medication Instructions Recorded azithromycin 250 mg tablet 250 mg PO QDAY 5 Days #6 tab 06/06/19 Ibuprofen [Ibuprofen 800mg 800 mg PO Q8HP PRN #20 tab 03/23/21 Tablet] Azithromycin [Z-Yossi 250mg Tab] 250 mg PO DIRECTED #6 tab 04/13/21 Benzonatate [Benzonatate 100mg 100 mg PO TID PRN #
[2021-04-13 10:07] VITALS: BP 134/74; PULSE 79; RESP 18; TEMP 37.2; O2SAT 99
== END 2021-04-13 10:15 | disposition home or self-care (01) ==
PROVIDERS: Emergency Provider Nurse Practitioner; PCP Internal Medicine Adolescent Medicine
DX: J06.9 Acute upper respiratory infection, unspecified (principal); Z20.822 Contact with and (suspected) exposure to COVID-19
CPT/HCPCS: 99202; C9803; G0463; U0003; U0005

== ENCOUNTER → 2021-09-03 08:14 | Outpatient (CLI) | payer BC, SELFPAY | PROVIDERS: Visit Provider Surgery | DX: Z01.812 Encounter for preprocedural laboratory examination (principal); Z11.52 Encounter for screening for COVID-19; Z12.11 Encounter for screening for malignant neoplasm of colon | CPT/HCPCS: C9803; U0003; U0005 ==

== ENCOUNTER 2021-09-05 12:13 | Day surgery (SDC) | payer BC, SELFPAY ==
[2021-09-05 12:40] VITALS: BP 112/61; PULSE 52; RESP 18; TEMP 36.6; O2SAT 97; BMI 30.7
[2021-09-05 13:37] VITALS: O2SAT 97
--- NOTE | 2021-09-05 14:13 | HMH.SCOPE ---
- Procedure: Date: 09/05/21 Patient Date of :: 1975 Procedure Performed:: Total colonoscopy to terminal ileum with polypectomy using biopsy forceps Indications:: Patient is a 46-year-old female. She is referred for initial screening colonoscopy. Performing Provider:: Evans Garsia MD Referring Provider:: Rosa Isela Kimbrough Sedation:: MAC sedation Procedure:: Patient was taken to endoscopy procedure room. She was positioned in lateral decubitus position. Adequate intravenous sedation was achieved with anesthesia titration propofol. Variable stiffness Olympus colonoscope was inserted via the anus. Is advanced to the cecum. Colonic preparation was good. Ileocecal valve and appendiceal orifice were clearly identified. Colonoscope was slowly withdrawn through the colon with careful surveillance. In the descending colon just distal to the splenic flexure there was a tiny polyp removed in a piecemeal fashion using cold biopsy forceps. In the sigmoid colon there was a tiny polyp removed with biopsy forceps. Rectosigmoid region there is a hyperplastic appearing polyp removed with cold biopsy forceps. Retroflexion within the rectum revealed no evidence of any pathologic internal hemorrhoids. Colonoscope was withdrawn. Findings:: Diminutive polyps as noted above Recommendations:: Pending pathology likely repeat colonoscopy 3 to 5 years Complications:: None immediately apparent Estimated blood obtained (mL): 2
[2021-09-05 14:15] VITALS: BP 116/87; PULSE 72; RESP 18; TEMP 36.5; O2SAT 97
--- NOTE | 2021-09-05 14:16 | P.PN_ITS ---
[facility] Anesthesia Checklist - Structural Data Admitted From: Home Planned Operative Procedure/s: colonoscopy Consent for Planned Operative Procedure(s) Verified: Yes - Airway Assessment C-Spine Mobility Assessed: Yes TMJ Mobility Assessed: Yes Dentition: Good Dentition - Neurological Assessment Level of Consciousness: Awake, Alert, Appropriate - Anesthesia Plan Anesthesia Risk discussed: Yes Anesthesia Plan: Verified ASA Class: II Anesthesia Type: MAC [facility] History I have reviewed the patient's past medical history: Yes Medical History: Denies:: Cancer, Diabetes Mellitus Type 1, Diabetes Mellitus Type 2, Gastrointestinal Bleed, Hypertension, Internal Pacemaker, MRSA, Seizures *Have you ever received a pneumonia vaccine?: No *Have you received a flu vaccine this season?: No Other Medical History: Denies: Other (GI disorders) Anesthesia experience/problems:: none Laterality Cases: Bilateral: Tonsillectomy Other Surgeries: Yes: Bariatric Surgery, Hysterectomy-Total, Tubal Ligation, Other (hysterectomy). No: Pacemaker Amputation: No Fractures: No - *Social History Last grade of school completed: Some college Smoking Status: Never smoker Alcohol Intake: never Alcohol Intake Frequency:: holidays/special occasions only Substance Use Type: denies use *Occupational Status:: employed Housing: house Household Members: spouse *Travel in the last 8 weeks: Inside the [facility] Family Hx:: Diabetes
[2021-09-05 14:25] VITALS: BP 99/60; PULSE 63; RESP 18; TEMP 36.5; O2SAT 98
[2021-09-05 14:35] VITALS: BP 113/72; PULSE 64; RESP 18; TEMP 36.5; O2SAT 99
[2021-09-05 14:42] VITALS: BP 114/66; PULSE 49; RESP 18; O2SAT 99
== END 2021-09-05 14:45 | disposition home or self-care (01) ==
LOC: OUTP 12:14
PROVIDERS: PCP Internal Medicine Adolescent Medicine; Visit Provider Surgery
PROC: 0DJD8ZZ Inspection of Lower Intestinal Tract, Via Natural or Artificial Opening Endoscopic (ICD-10-PCS; CPT 45380; principal; 2021-09-05 13:30)
DX: Z12.11 Encounter for screening for malignant neoplasm of colon (principal); K63.5 Polyp of colon
CPT/HCPCS: 45380

== ENCOUNTER → 2022-01-22 09:14 | Outpatient (CLI) | payer BC, SELFPAY ==
--- NOTE | 2022-01-22 09:21 | XR_ITS ---
FINAL REPORT CLINICAL HISTORY: RT HAND PAIN FINDINGS: RIGHT HAND 3 views of the right hand were obtained. There is no acute fracture or dislocation. There are mild degenerative changes of the radial aspect of the wrist. Soft tissues are unremarkable. IMPRESSION: No acute bony abnormality. Reviewed, Interpreted and Dictated by Evans Vergara III, MD Transcribed by Angela Dawkins Authenticated and [facility]
--- NOTE | 2022-01-22 09:21 | XR_ITS ---
FINAL REPORT CLINICAL HISTORY: LT HAND PAIN FINDINGS: LEFT HAND 3 views of the left hand were obtained. There is no acute fracture or dislocation. There are mild degenerative changes of the radial aspect of the wrist. There is a small calcification adjacent to the IP joint of the thumb. Soft tissues are unremarkable. IMPRESSION: No acute bony abnormality. Reviewed, Interpreted and Dictated by Evans Vergara III, MD Transcribed by Angela Dawkins Authenticated and [facility]
== END ==
LOC: RAD 09:15
PROVIDERS: PCP Internal Medicine Adolescent Medicine; Visit Provider Nurse Practitioner Family
DX: M79.642 Pain in left hand (principal); M79.641 Pain in right hand
CPT/HCPCS: 73130

== ENCOUNTER 2022-02-11 08:00 | Outpatient (RCR) | payer BC, SELFPAY ==
--- NOTE | 2022-02-02 11:48 | HMH.OTOPEV ---
OT Inpatient Evaluation Rehab OT Outpatient Eval Start: 02/02/22 11:32 Freq: Status: Active Protocol: Document 02/02/22 11:33 MONICA (Rec: 02/02/22 11:48 [id number] E-signed By Sammy Chisholm, OT Outpatient Therapy Subjective History Subjective History Pt is a 46 year old female who reports to therapy for initial evaluation to bilateral hands. 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 She currently still works fulltime. 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 Pt reports her right hand is the worst between the two. Pt demonstrates with decreased AROM, strength, and middle school assistant principal strength. Pt will continue to be seen twice a week in order to address bilateral Hand deficits. Right Hand Manager Practice Strength STlbs Right hand Manager Practice Strength LT lbs Left hand Manager Practice Strength ST lbs Left hand Manager Practice Strength LT lbs STG AROM Digits R thumb IP Flex: 65 degrees L thumb IP Flext: 65 degrees Right Middle PIP flex: 95 degrees Right Middle DIP flex: 60 degrees LTG ARoM digist Right thumb IP joint flex: 75 degrees Left thumb IP joint flex: 75 degrees Right Middle PIP flex: 100 degrees Right Middle DIP Flex: 70 degrees Chief Complaint Pain,Stiff,Weakness,Decreased Manager Practice Strength Symptom Type Ache,Throb,Dull
== END 2022-02-11 08:05 | disposition home or self-care (01) ==
LOC: OT 08:00
PROVIDERS: PCP Internal Medicine Adolescent Medicine; Visit Provider Nurse Practitioner Family
DX: M79.641 Pain in right hand (principal); M79.642 Pain in left hand; M19.041 Primary osteoarthritis, right hand; M19.042 Primary osteoarthritis, left hand
CPT/HCPCS: 97010; 97014; 97018; 97035; 97110; 97140; 97166; G0283

== ENCOUNTER → 2023-01-27 11:58 | Outpatient (CLI) | payer BC, SELFPAY | PROVIDERS: PCP Nurse Practitioner Family; Visit Provider Nurse Practitioner Family | DX: J02.9 Acute pharyngitis, unspecified (principal) | CPT/HCPCS: 87070 ==

== ENCOUNTER 2023-06-27 10:06 | Emergency (ER) | payer BC, SELFPAY ==
[2023-06-27 11:00] VITALS: BP 124/76; PULSE 67; RESP 18; TEMP 36.6; O2SAT 98; BMI 33.0
--- NOTE | 2023-06-27 11:06 | ED_ITS ---
Discharge Plan Disposition Patient Disposition: Home, Self-Care Condition: Good Prescriptions Prescriptions: New fluconazole 150 mg tablet 150 mg PO ONCE Qty: 1 3RF phenazopyridine 200 mg Tablet 200 mg PO TID 2 Days Qty: 6 0RF ciprofloxacin HCl [Cipro] 500 mg tablet 500 mg PO BID 7 Days Qty: 14 0RF No Action azelastine 137 mcg (0.1 %) aerosol,spray 2 spray intranasal BID Qty: 30 3RF Rx Instructions: administer into each nostril levocetirizine [Xyzal] 5 mg tablet 5 mg PO DAILY Qty: 90 3RF Referrals Follow up/Referrals: Bart Wagner MD [Primary Care Provider] - See instructions Activity Restrictions/Add. Instructions Additional Instructions/Restrictions: Drink plenty of fluids. Take tylenol or ibuprofen for pain or fever. Take the medications as directed. Follow up with your regular doctor. GO TO THE ER FOR ANY WORSENING SYMPTOMS The pyridium will make your urine turn orange, this is an expected side effect. It will stain your clothes if it comes into contact with them. We will culture the urine. That will tell what bacteria is causing your infection and which antibiotics will treat it best. Sometimes the first antibiotic we prescribe turns out to not work against different bacteria. So, make sure you follow up within 3 days if you are not getting better. Clinical Impressions Clinical Impression: UTI (urinary tract infection) Instructions Patient Instructions: Urinary Tract Infection, Urine Culture, DI for Urinary Tract Infection (UTI), Phenazopyridine, Fluconazole Discharge ED Provider: Theodore Murphy [facility] HPI General Stated complaint: abd pain frequant/pain urination w/blood Time Seen by Provider: 06/27/23 11:05 History of Present Illness Provider Complaint: She states that for the past 2 days she has had low back jessica n, dysuria, and urinary frequency. Related Data Previous Rx's Medication Instructions Recorded azelastine 137 mcg (0.1 %) nasal 2 spray intranasal BID allergy #30 01/30/23 spray aerosol mL levocetirizine 5 mg tablet (Xyzal) 5 mg PO DAILY #90 tabs 01/30/23 ciprofloxacin HCl 500 mg tablet 500 mg PO BID 7 days #14 tabs 06/27/23 (Cipro) fluconazole 150 mg tablet 150 mg PO ONCE 1 dose #1 tab 06/27/23 phenazopyridine 200 mg tablet 200 mg PO TID 2 days #6 tabs 06/27/23 Allergies Allergy/AdvReac Type Severity Reaction Status Date / Time No Known Allergies Allergy Verified 06/27/23 11:13 [facility] Disclaimer: The information contained in this section may have been updated after the patient was seen, as this information can be updated by other users. Medical History (Updated 06/27/23 @ 11:40 by Theodore Murphy APRN) Abdominal pain Conjunctivitis Influenza A No significant past medical history Otitis media Sinusitis Upper respiratory virus Surgical History No significant past surgical history Family History Other No significant family history Social History Smoking Status: Never smoker alcohol intake: never substance use type: denies use current occupational status: employed Travel in the last 8 weeks: Inside the [place] household members: spouse housing: house current occupation: cosmatologist caffeine: Yes ROS Obtained: Yes All systems reviewed & no additional complaints except as documented Constitutional Constitutional: Reports system reviewed and no additional complaints, except as documented, Denies chills and Denies fever(s) Eyes Eyes: Denies eye discharge ENT Ears, Nose, Mouth, and Throat: Denies dysphagia, Denies sore throat and Denies throat swelling Cardiovascular Cardiovascular: Denies chest pain and Denies dyspnea Respiratory Respiratory: Denies chest congestion, Denies cough and Denies dyspnea Gastrointestinal Gastrointestingal: Denies abdominal pain, constipation, diarrhea, dysphagia, nausea or vomiting Genitourinary Female Genitourinary: Reports as per HPI, Reports dysuria, Reports urinary frequency, Denies urinary incontinence, Reports urinary hesitancy and Reports urinary urgency Musculoskeletal Musculoskeletal: Denies arthralgias and Reports back pain Integumentary/Breasts Skin/Breast: Denies rash Neurologic Neurologic: Denies paresthesias Allergic/Immunologic Allergic/Immunologic: Denies throat swelling Physical Exam General General appearance: alert and in no apparent distress Head Head exam: atraumatic, normocephalic and normal inspection Eye Eye exam: Present normal appearance, PERRL and EOMI ENT ENT exam: Present normal exam, normal oropharynx, mucous membranes moist, TM's normal bilaterally and normal external ear exam Neck Neck exam: Present normal inspection, full ROM and trachea midline; Absent meningismus or lymphadenopathy Chest Chest inspection: Present normal inspection and symmetric chest wall rise; Absent tenderness Respiratory Respiratory exam: Present normal lung sounds bilaterally; Absent respiratory distress Cardiovascular Cardiovascular exam: Present regular rate and normal rhythm; Absent JVD Abdominal Exam Abdominal exam: Present soft and normal bowel sounds; Absent distention, tenderness or guarding Extremities Exam Extremities exam: Present normal inspection, full ROM and normal capillary refill; Absent calf tenderness Back Exam Back exam: Present normal inspection; Absent tenderness Neurological Exam Neurological exam: Present alert and oriented X3 Psychiatric Psychiatric exam: Present normal affect and normal mood Skin Skin exam: Present warm, dry, intact and normal color Lymphatic Lymphatic Findings: no adenopathy Medical Decision Making Medical Records Medical records reviewed: No I reviewed the patient's medical records. Nasim Inquiry Pt receiving controlled substance: No Lab Data Lab results reviewed: Yes I reviewed the patient's lab results.
[2023-06-27 11:14] LABS: Apearance,Urine Slightly Cloudy (Clear); Bilirubin,Urine Negative (Negative); Blood, Urine 2+ (Negative); Color,Urine Dark Yellow (Yellow); Glucose,Urine (UA) Negative (Negative); Ketones,Urine Negative (Negative); PH,Urine 6.5 (5.0-8.5); Protein,Urine 1+ (Negative); UTC Leukocyte Esterase,Urine 2+ (Negative); UTC Nitrate,Urine Negative (Negative); Urobilinogen,Urine 0.2 EU/dl (0.2)
[2023-06-27 11:53] VITALS: BP 124/76; PULSE 67; RESP 18; TEMP 36.6; O2SAT 98
== END 2023-06-27 11:54 | disposition home or self-care (01) ==
PROVIDERS: Emergency Provider Nurse Practitioner Family; PCP Internal Medicine Adolescent Medicine
DX: N39.0 Urinary tract infection, site not specified (principal); M54.59 Other low back pain
CPT/HCPCS: 81003; 87086; 99212; 99214; G0463

== ENCOUNTER 2023-09-07 09:28 | Outpatient (POV) | payer BC, SELFPAY | END 2023-09-07 23:59 | disposition home or self-care (01) | LOC: SC 09:29 | PROVIDERS: PCP Internal Medicine Adolescent Medicine; Visit Provider Dermatology | DX: Z00.00 Encounter for general adult medical examination without abnormal findings (principal) ==

== ENCOUNTER 2023-11-01 08:43 | Outpatient (CLI) | payer BC, SELFPAY ==
--- NOTE | 2023-11-01 08:55 | XR_ITS ---
FINAL REPORT CLINICAL HISTORY: left elbow pain FINDINGS: 3 views of the elbow were obtained. There is no acute fracture or dislocation. The joint spaces are intact. There is not soft tissue abnormality. IMPRESSION: No acute fracture Reviewed, Interpreted and Dictated by Sharifa Em MD Transcribed by Brii Pitt Authenticated and [facility]
== END 2023-11-01 23:59 | disposition home or self-care (01) ==
LOC: RAD 08:44
PROVIDERS: PCP Internal Medicine Adolescent Medicine; Visit Provider Physician Assistant
DX: M25.522 Pain in left elbow (principal)
CPT/HCPCS: 73080

== ENCOUNTER 2024-03-13 12:18 | Outpatient (CLI) | payer BC, SELFPAY ==
[2024-03-13 13:19] LABS: Basophils % 0.9 % (0.1-2.0); Eosinophils # 0.1 K/mm3 (0.0-0.4); Eosinophils % 2.3 % (0.1-12.0); Hematocrit 40.2 % (37.0-47.0); Hemoglobin 13.7 g/dL (12.2-16.2); Lymphocytes # 1.5 K/mm3 (0.7-4.5); Lymphocytes % 29.2 % (10-50); Mean Corpuscular HGB Conc 34.2 g/dL (31.8-35.4); Mean Corpuscular Hemoglobin 28.9 pg (27.0-31.2); Mean Corpuscular Volume 84.5 fl (81-99); Mean Platelet Volume 6.8 fl (7.4-10.4); Monocytes # 0.2 K/mm3 (0.1-1.0); Monocytes % 3.7 % (1.7-9.3); Neutrophils # 3.2 K/mm3 (1.8-7.8); Neutrophils % 63.9 % (37.0-80.0); Platelet Count 263 K/mm3 (142-424); Red Blood Count 4.75 M/mm3 (4.20-5.40); Red Cell Distribution Width 13.7 % (11.5-17.5)
[2024-03-13 13:55] LABS: Chloride 106 mmol/L (98-107); Potassium 4.1 mmoL/L (3.5-5.1); Sodium 141 mmol/L (136-145)
[2024-03-13 13:58] LABS: Blood Urea Nitrogen 8 mg/dl (7-17); Estimated Glomerular Filt Rate 106 ml/min (>60); GFR (African American) 129 ML/MIN (>60)
[2024-03-13 13:59] LABS: Anion Gap 10.1 mEq/L (5-15); Carbon Dioxide 29 mmol/L (22.0-30.0); Glucose 85 mg/dl (74-100)
[2024-03-13 14:04] LABS: C-Reactive Protein 4.2 mg/L (0-4)
[2024-03-13 15:42] LABS: Erythrocyte Sedimentation Rate 16 mm/hr (0-20)
[2024-03-14 11:19] LABS: Angiotensin Converting Enzyme 24 U/L (14-82)
[2024-03-14 12:12] LABS: Rapid Plasma Reagin Ab Titer Non Reactive titer (NonRea<1:1)
[2024-03-14 14:13] LABS: Lyme Ab CIA Negative (Negative)
[2024-03-15 14:33] LABS: Antinuclear Antibodies, IFA Negative (.)
[2024-03-17 13:18] LABS: B. henselae IgM Negative titer (Neg:<1:100); B. quintana IgG Negative titer (Neg:<1:320); B. quintana IgM Negative titer (Neg:<1:100)
== END 2024-03-13 23:59 | disposition home or self-care (01) ==
LOC: LAB 12:20
PROVIDERS: PCP Internal Medicine Adolescent Medicine; Visit Provider Ophthalmology Retina Specialist
DX: H30.92 Unspecified chorioretinal inflammation, left eye (principal)
CPT/HCPCS: 36415; 80048; 82164; 85025; 85549; 85651; 86038; 86140; 86593; 86611; 86618; 86780

== ENCOUNTER 2024-03-14 08:18 | Outpatient (CLI) | payer BC, SELFPAY ==
[2024-03-14 09:07] LABS: Amylase 63 U/L (30-110); Chol/HDL Ratio 3.1 (1-3.5); Cholesterol 165 mg/dl (140-200); HDL Cholesterol 53 mg/dl (40-60); Lipase 218 U/L (23-300); Triglycerides 105 mg/dl (30-150); VLDL Cholesterol 21 mg/dL (0-40)
[2024-03-14 09:20] LABS: Direct LDL Cholesterol 97.18 mg/dL (100-129)
[2024-03-14 09:26] LABS: 25-OH Vitamin D, Total 98.7 ng/mL (30-100)
[2024-03-14 09:38] LABS: Thyroid Stimulating Hormone 1.92 uIU/mL (0.465-4.68)
[2024-03-14 09:57] LABS: Vitamin B12 747 pg/mL (239-931)
== END 2024-03-14 23:59 | disposition home or self-care (01) ==
LOC: LAB 08:19
PROVIDERS: PCP Nurse Practitioner Family; Visit Provider Nurse Practitioner Family
DX: G62.9 Polyneuropathy, unspecified (principal); Z90.3 Acquired absence of stomach [part of]; R53.83 Other fatigue; R10.9 Unspecified abdominal pain; Z00.00 Encounter for general adult medical examination without abnormal findings
CPT/HCPCS: 36415; 80061; 82150; 82306; 82607; 83690; 84443

== ENCOUNTER 2024-03-28 07:50 | Outpatient (CLI) | payer BC, SELFPAY ==
--- NOTE | 2024-03-28 08:02 | MR_ITS ---
FINAL REPORT CLINICAL HISTORY: pt stated she had vision change in left eye x5-6 weeks ago 15 ml prohance COMPARISON: None FINDINGS: Multiplanar MR imaging of the orbits was performed without and with contrast. The globes are intact without evidence of hemorrhage or mass. The extraocular muscles are intact. The optic nerves have an unremarkable appearance. There is no evidence of intraorbital mass or abnormal fluid collection. No abnormal contrast enhancement is identified. The optic chiasm has an unremarkable appearance. IMPRESSION: No mass or abnormal contrast enhancement Reviewed, Interpreted and Dictated by Evans Vergara III, MD Transcribed by Barbara Kolb Authenticated and [facility]
--- NOTE | 2024-03-28 08:02 | MR_ITS ---
FINAL REPORT CLINICAL HISTORY: pt stated she had vision change in left eye x5-6 weeks ago 15 ml prohance COMPARISON: None FINDINGS: Multiplanar MR imaging of the brain was performed without and with contrast. There is no evidence of intracranial hemorrhage or mass. No abnormal extra-axial fluid collection is seen. The ventricular size is within normal limits. There is no evidence of shift of the midline structures. The posterior fossa and brainstem have an unremarkable appearance. No area of abnormal restricted diffusion is identified. No abnormal contrast enhancement is seen. Normal major vessel vascular flow voids are noted. There is mucosal thickening in multiple paranasal sinuses. IMPRESSION: No acute intracranial abnormality identified. Reviewed, Interpreted and Dictated by Evans Vergara III, MD Transcribed by Barbara Kolb Authenticated and . [facility]
[2024-03-28] MEDS: SODIUM CHLORIDE 0.9% 10ML SYR (RAD ONLY) 10 ML IV (09:13)
[2024-03-28] MEDS: GADOTERIDOL INJ 20ML SYRINGE 15 ML IV (09:13)
== END 2024-03-28 23:59 | disposition home or self-care (01) ==
PROVIDERS: PCP Nurse Practitioner Family; Visit Provider Internal Medicine Adolescent Medicine
DX: H47.10 Unspecified papilledema (principal)
CPT/HCPCS: 70543; 70553; A9576

== ENCOUNTER 2024-11-22 13:56 | Outpatient (CLI) | payer BC, SELFPAY ==
--- NOTE | 2024-11-22 13:59 | XR_ITS ---
FINAL REPORT CLINICAL HISTORY: Left knee pain COMPARISON: None FINDINGS: LEFT KNEE 3 views of the left knee were obtained. There is no acute fracture or dislocation. Small osteophytes are seen along the undersurface of the patella. The joint space is preserved. Soft tissues are unremarkable. IMPRESSION: No acute bony abnormality. Small osteophytes. Reviewed, Interpreted and Dictated by Kee Pereira MD Transcribed by Mireya Westbrook Authenticated and [facility]
--- OUTSIDE RECORDS SUMMARY | 2024-11-22 13:59 | XMS_ITS | Clinical Summary ---
Author Organization [employer] ([place], [place], [place], [place]) Address [address] [place] [address] Care Team Providers Care Packaging Manager Name Role Phone Unavailable Primary Care Provider Unavailabl e Social History Tobacco Use Types Packs/Day Years Used Date Smoking Tobacco: Never Assessed Comments Unknown Sex and Gender Information Value Date Recorded Sex Assigned at Female 11/11/2021 8:08 PM CDT Legal Sex Female 8:08 PM CDT Gender Identity Female 11/11/2021 8:08 PM CDT Sexual Orientation Not on file Plan of Treatment Not on file
--- OUTSIDE RECORDS SUMMARY | 2024-11-22 13:59 | XMS_ITS | Referral Summary ---
Author Organization [employer] ([place], [place], [place], [place]) Address [address] [place] [address] Care Team Providers Care Oracle Database Architect Name Role Phone Unavailable Primary Care Provider [...]
--- OUTSIDE RECORDS SUMMARY | 2024-11-22 13:59 | XMS_ITS | Clinical Summary ---
Author Organization Healthcare Address [address] [place] [address] Care Team Providers Care Dredge Pipe Operator Name Role Phone Unavailable Primary Care Provider Unavailabl e Social History Tobacco Use Types Packs/Day Years Used Date Smoking Tobacco: Never Assessed Comments Unknown Sex and Gender Information Value Date Recorded Sex Assigned at Not on file Legal Sex Female 8:31 PM EDT Gender Identity Not on file Sexual Orientation Not on file Last Filed Vital Signs Vital Sign Reading Time Taken Comments Blood Pressure - - Pulse - - Temperature - - Respiratory Rate - - Oxygen Saturation - - Inhaled Oxygen Concentration - - Weight 110 kg (242 lb 15.9 oz) 05/02/2014 1:20 P M EST Height 167.6 cm (5' 6 ) 05/02/2014 1:20 PM EST Body Mass Index 39.22 05/02/2014 1:20 PM EST Plan of Treatment Not on file
== END 2024-11-22 23:59 | disposition home or self-care (01) ==
LOC: RAD 13:57
PROVIDERS: PCP Internal Medicine Adolescent Medicine; Visit Provider Nurse Practitioner Family
DX: M25.762 Osteophyte, left knee (principal)
CPT/HCPCS: 73562

== ENCOUNTER 2024-12-01 08:47 | Outpatient (CLI) | payer BC, SELFPAY ==
--- OUTSIDE RECORDS SUMMARY | 2024-12-01 08:49 | XMS_ITS | Clinical Summary ---
[facility] Address [address] [place] [address] Care Team Providers Care Shoulder Boner Name Role Phone Bart Wagner MD Primary Care Provider + [phone] Family History Medical History Relation Name Comments Breast cancer Maternal Grandmother Ovarian cancer Neg Hx Relation Name Status Comments Maternal Grandmother Social History Tobacco Use Types Packs/Day Years Used Date Smoking Tobacco: Never Assessed Abuse Screen Answer Date Recorded Unsafe at Home or Work/School Not on file Feels Threatened by Someone? Not on file 03/2023 Does Anyone Keep You from Co ntacting Others or Doint Things Outside the Home? Not on file 02/24/2023 Physical Sign of Abuse Present Not on file 1 Housing Stability Answer Date Recorded Current Living Arrangements Not on file 02/14 Potentially Unsafe Housing Conditions Not on saw e 02/24/2023 Family and Community Support Answer Clem e Recorded Help with Day-to-Day Activities Not on file 02/24/2023 Lonely or Isolated Not on file 02/24/2023 Employment Answer Date Recorded Do you want help finding or keeping work or a adrian b? Not on file 02/24/2023 Disabilities Answer Date Recorded Concentrating, Remembering, or Making Decisions Difficulty Not on file 02/24/2023 Doing Errands Independently Difficulty Not on fi le 02/24/2023 Education Answer Date Recorded Help with school or training? Not on file Preferred Language Not on file 02/24/2023 Comments No Sex and Gender Information Value Date Recorded Sex Assigned at Not on file Legal Sex Female 11:33 AM EST Gender Identity Not on file Sexual Orientation Not on file Plan of Treatment Health Maintenance Due Date Last Done Comments ANNUAL PHYSICAL 1975 Annual Gynecologic Pelvic and Breast Exam 1975 HEPATITIS C SCREENING 1975 TDAP/TD VACCINES (1 - Tdap) 1994 COLOGUARD 2020 COLON CANCER SCREENING 5 YEAR SIGMOIDOSCOPY 2020 COLONOSCOPY 2020 [address] CANCER SCREENING 2020 CT COLONOGRAPHY 2020 FECAL OCCULT BLOOD TEST 2020 FIT Testing (1 year) 2020 COVID-19 Vaccine ( season) 2024 07/10/2020, 06/12/2020 INFLUENZA VACCINE 02/14/2025 MAMMOGRAM 03/15/2026 03/15/2024, 02/15, 08/13/2017, Additional history exists Pneumococcal Vaccine 0-49 Aged Out No longer eligible based on patient's age to complete this topic Procedures Procedure Name Priority Date/Time Associated Diagnosis Comments MAMMO SCREENING DIGITAL TOMOSYNTHESIS BILATERAL W CAD Routine 03/15/2024 10:40 AM EDT Visit for screening mammogram from Last 3 Months or Most Recently Relevant to Health Maintenance Results * Mammo Screening Digital Tomosynthesis Bilateral With CAD (03/15/2024 10:40 AM EDT) Anatomical Region Laterality Modality Breast N/A Mammography 03/20/2024 7:57 PM EST Impressions 03/20/2024 7:58 PM EST Benign screening mammogram. No findings suspicious for malignancy. ACR BI-RADS CATEGORY: 2, BENIGN RECOMMENDATION: Yearly mammogram, yearly clinical breast exam, and encourage self breast awareness. CAD was used. The standard false negative rate of mammography is between 10% and 25%. Complex patterns or increased breast density will markedly elevate the false negative rate of mammography. A letter, in lay terminology, with the results of this exam will be mailed to the patient. At our facility, a triangular marker is positioned over a palpable area of concern indicated by the patient. A [place] marker is placed over a visible skin lesion. A linear marker indicates a scar. If there is a palpable area of concern, biopsy should be considered regardless of imaging findings. This report was finalized on 03/20/2024 7:[address] Ashlee Guy MD. Narrative 03/20/2024 7:58 PM EST DIGITAL SCREENING MAMMOGRAM WITH TOMOSYNTHESIS HISTORY: Routine screening. The patient has had an interval 28 pound weight loss. IMAGE COMPARISON: 03/13/2022, 08/13/2017, 07/29/2016. TECHNIQUE: Low dose full field digital breast tomosynthesis imaging was performed with 2D and 3D acquisitions consisting of bilateral CC and MLO views. FINDINGS: There are scattered areas of fibroglandular density. There is fluctuating mild mammographic nodularity consistent with fibrocystic changes. There is no mass, worrisome microcalcifications, or architectural distortion to suggest development of malignancy. Bart Wagner MD IMG MAMMOGRAPHY ORDERABLES F inal Result from Last 3 Months or Most Recently Relevant to Health Maintenance Insurance Care Teams Shoulder Boner Relationship Specialty Start Date End Date Bart Wagner MD [address] [place] [address] PCP - General Adolescent Medicine 07/15/16
--- OUTSIDE RECORDS SUMMARY | 2024-12-01 08:49 | XMS_ITS | Referral Summary ---
Author Organization [employer] ([place], [place], [place], [place]) Address [address] [place] [address] Care Team Providers Care Cutter V Groove Name Role Phone Unavailable Primary Care Provider [...]
--- OUTSIDE RECORDS SUMMARY | 2024-12-01 08:49 | XMS_ITS | Clinical Summary ---
Author Organization Healthcare Address [address] [place] [address] Care Team Providers Care Social Work Program Coordinator Name Role Phone Unavailable Primary Care Provider [...]
--- OUTSIDE RECORDS SUMMARY | 2024-12-01 08:49 | XMS_ITS | Clinical Summary ---
Author Organization [employer] ([place], [place], [place], [place]) Address [address] [place] [address] Care Team Providers Care Director Day Care Center Name Role Phone Unavailable Primary Care Provider [...]
--- NOTE | 2024-12-01 08:52 | MR_ITS ---
FINAL REPORT TECHNIQUE: Multiplanar MR without contrast CLINICAL HISTORY: PAIN IN LEFT KNEE. medial sided knee pain. knee instability. knee swelling FINDINGS: Articular cartilage: No focal defect Marrow signal: Small foci of subchondral edema involving the anterior lateral femoral condyle, likely related to patellofemoral joint disease. Joint fluid: Small joint effusion with a tiny Patterson's cyst. Menisci: Normal morphology without tear Ligaments: Collateral, cruciate and patellofemoral ligaments intact Tendons: Quadriceps and patellar tendon normal There is edema within the infrapatellar fat pad, greater along the lateral aspect. This likely reflects fat pad impingement and patellar tracking abnormality. There is a high-grade partial tear of the medial gastrocnemius tendon at the femoral attachment. IMPRESSION: Infrapatellar fat pad impingement with mild patellofemoral arthritic changes. This may reflect tracking abnormality. Partial tear of medial gastrocnemius tendon at the femoral attachment. Reviewed, Interpreted and Dictated by Sharifa Em MD Transcribed by Aliyah Angeles Authenticated and [facility]
== END 2024-12-01 23:59 | disposition home or self-care (01) ==
LOC: RAD 08:48
PROVIDERS: PCP Internal Medicine Adolescent Medicine; Visit Provider Nurse Practitioner Family
DX: M17.12 Unilateral primary osteoarthritis, left knee (principal); S86.112A Strain of other muscle(s) and tendon(s) of posterior muscle group at lower leg level, left leg, initial encounter; M25.862 Other specified joint disorders, left knee
CPT/HCPCS: 73721

== ENCOUNTER 2025-04-08 18:00 | Outpatient (CLI) | payer BC, SELFPAY ==
--- OUTSIDE RECORDS SUMMARY | 2025-04-09 10:51 | XMS_ITS | Clinical Summary ---
Author Organization Healthcare Address [address] [place] [address] Care Team Providers Care Assistant Professor Of Radiology Name Role Phone Unavailable Primary Care Provider [...]
--- OUTSIDE RECORDS SUMMARY | 2025-04-09 10:51 | XMS_ITS | Clinical Summary ---
[facility] Address [address] [place] [address] Care Team Providers Care Aircraft Painter Apprentice Name Role Phone Bart Wagner MD Primary Care Provider + [phone] Family History Medical History Relation Name Comments [...] Comments ANNUAL PHYSICAL 1975 Annual Gynecologic Pelvic an d Breast Exam 1975 HEPATITIS C SCREENING 1975 TDAP/TD VACCINES (1 - Tdap) 1994 COLOGUARD 2020 COLON CANCER SCREENING 5 YEA R SIGMOIDOSCOPY 2020 COLONOSCOPY 2020 [address]AL CANCER SCREENING 2020 CT COLONOGRAPHY 2020 FECAL OCCULT BLOOD TEST 2020 FIT Testing (1 year) 2020 INFLUENZA VACCINE 12/15/2024 Pneumococcal Vaccine 50+ (1 of 1 - PCV) 2025 ZOSTER VACCINE (1 of 2) 2025 MAMMOGRAM 03/15/2026 03/15/2024, 02/15, 08/13/2017, Additional history exists Procedures Procedure Name Priority Date/Time Associated Diagnosis [...] of concern indicated by the patient. A ugash[place] marker is placed over a visible skin [...] Relevant to Health Maintenance Insurance Care Teams Aircraft Painter Apprentice Relationship Specialty Start Date End Date Bart Wagner MD [address] [place] [address] PCP - General Adolescent Medicine 07/15/16
== END 2025-04-08 23:59 | disposition home or self-care (01) ==
LOC: LAB.DROPOF 04-09 10:31
PROVIDERS: PCP Internal Medicine Adolescent Medicine; Visit Provider Nurse Practitioner
DX: N39.0 Urinary tract infection, site not specified (principal)
CPT/HCPCS: 87086; 87088